=== PATIENT | male | born 1980 | race Caucasian/White ===

== ENCOUNTER 2020-07-14 17:17 | Inpatient (IN) | payer MEDICAID, OTHER ==
[~2020-07-14] VITALS: Ht 175.3 cm; Wt 112.9 kg
[~2020-07-14 17:17] MED LIST: RISP1TAB48 PO; SERT50TA PO
[2020-07-14] MEDS ORDERED: HALOPERIDOL LACTATE 5 MG/ML VIAL IM ONE (18:45)
[2020-07-14] MEDS ORDERED: DiphenhydrAMINE HCL 50 MG/ML VIAL IM ONE (18:45)
[2020-07-14] MEDS ORDERED: LORazepam 2 MG/ML VIAL IM ONE (18:45)
[2020-07-14 19:00] LABS: COVID AG,FIA SOURCE NASAL SWAB
[2020-07-14] MEDS ORDERED: HALOPERIDOL 5 MG TABLET PO PRN (22:45)
[2020-07-15 00:38] LABS: BASOPHILS % (AUTO) 0.2 % (0.0-2.0); EOSINOPHILS % (AUTO) 0.2 % (1.0-6.0); HEMATOCRIT 44.5 % (41-53); HEMOGLOBIN 15.1 g/dL (13.5-17.5); LYMPHOCYTES # (AUTO) 1.8 K/uL (1.0-4.8); LYMPHOCYTES % (AUTO) 11.6 % (22.0-44.0); MEAN CORPUSCULAR HEMOGLOBIN 30.5 pg (26.0-34.0); MEAN CORPUSCULAR VOLUME 90 fL (80-100); MONOCYTES # (AUTO) 1.3 K/uL (0.1-1.0); MONOCYTES % (AUTO) 8.2 % (2.0-9.0); NEUTROPHILS # (AUTO) 12.3 K/uL (1.8-7.7); NEUTROPHILS % (AUTO) 79.8 % (40.0-70.0); PLATELET COUNT (AUTO) 259 K/uL (150-450); RED BLOOD CELL COUNT(AUTO) 4.95 MIL/uL (4.50-5.90); RED CELL DISTRIBUTION WIDTH 13.8 % (11.5-14.5)
[2020-07-15 01:01] LABS: ANION GAP 13 mmol/L (8-16); CALCIUM, TOTAL 8.2 mg/dL (8.8-10.5); CARBON DIOXIDE 22 mmol/L (22-29); CHLORIDE 105 mmol/L (98-107); CREATININE 1.15 mg/dL (0.60-1.30); GLOMERULAR FILTR. RATE CALC > 60 mL/min (>60); GLUCOSE,RANDOM 94 mg/dL (70-110); POTASSIUM 3.7 mmol/L (3.5-5.1); SODIUM SERUM 140 mmol/L (136-145); UREA NITROGEN, BLOOD 19 mg/dL (7-18)
[2020-07-15 01:06] LABS: CHOL/HDL RATIO 2.7 (4.2-7.3)
[2020-07-15 01:07] LABS: ALANINE AMINOTRANSFERASE 65 U/L (12-78); ALBUMIN 3.8 g/dL (3.4-5.0); ALKALINE PHOSPHATASE 47 U/L (46-116); ASPARTATE AMINOTRANSFERASE 102 U/L (15-37); TOTAL PROTEIN, SERUM 7.5 g/dL (6.4-8.2)
[2020-07-15 08:51] LABS: APPEARANCE,URINE CLEAR (CLEAR); GLUCOSE, URINE (UA) NEGATIVE (NEGATIVE); KETONES,URINE >=80 mg/dL (NEGATIVE); LEUKOCYTE ESTERASE ,URINE NEGATIVE (NEGATIVE); NITRATE,URINE NEGATIVE (NEGATIVE); OCCULT BLOOD,URINE SMALL (NEGATIVE); PH,URINE 6.5 (5.0-8.0); PROTEIN,URINE TRACE (NEGATIVE); UROBILINOGEN,URINE 0.2 mg/dL (<=1.0)
[2020-07-15 08:52] LABS: BILIRUBIN,URINE PRELIM. POSITIVE (NEGATIVE)
[2020-07-15 08:56] LABS: AMPHET/METH SCREEN,URINE NEGATIVE (NEGATIVE); BARBITURATE SCREEN, URINE NEGATIVE (NEGATIVE); BENZODIAZEPINES SCREEN,URINE NEGATIVE (NEGATIVE); CANNABINOID SCREEN,URINE POSITIVE (NEGATIVE); COCAINE SCREEN,URINE NEGATIVE (NEGATIVE); METHADONE SCREEN, URINE NEGATIVE (NEGATIVE); OPIATE SCREEN,URINE NEGATIVE (NEGATIVE)
[2020-07-15 08:58] LABS: PHENCYCLIDINE SCREEN,URINE NEGATIVE (NEGATIVE)
[2020-07-15 09:00] LABS: BACTERIA,URINE None Seen /HPF (None Seen); RBC,URINE 0-2 /HPF (0-2); SQUAMOUS EPITHELIAL CELL,UR Few /LPF (None Seen); WBC,URINE None Seen /HPF (0-5)
[2020-07-15 16:53] VITALS: BP 136/70
[2020-07-15] MEDS ORDERED: LOPERAMIDE HCL 2 MG CAPSULE PO PRN (19:45)
[2020-07-15] MEDS ORDERED: CloNIDine HCL 0.1 MG TABLET PO PRN (19:45)
[2020-07-15] MEDS ORDERED: DOCUSATE SODIUM 100 MG CAPSULE PO PRN (19:45)
[2020-07-15] MEDS ORDERED: MAGNESIUM HYDROXIDE SUSPENSION 30 ML UDCUP PO PRN (19:45)
[2020-07-15] MEDS ORDERED: MAG HYDROX/AL HYDROX/SIMETH ES 30 ML SUSPENSION UDCUP PO PRN (19:45)
[2020-07-15] MEDS ORDERED: PETROLATUM,WHITE 28 GM JELLY TP PRN (19:45)
[2020-07-15] MEDS ORDERED: IBUPROFEN 400 MG TABLET PO PRN (19:45)
[2020-07-15] MEDS ORDERED: ONDANSETRON HCL 4 MG TABLET PO PRN (19:45)
[2020-07-15] MEDS ORDERED: ACETAMINOPHEN 325 MG TABLET PO PRN (19:45)
[2020-07-15] MEDS ORDERED: ALBUTEROL SULFATE HFA 90 MCG/PUFF 8 GM INHALER IH PRN (19:45)
[2020-07-15] MEDS ORDERED: NICOTINE 14 MG/24 HOUR PATCH TD PRN (19:45)
[2020-07-15] MEDS ORDERED: GuaiFENesin/D-METHORPHAN [SUGAR-FREE] 200-20MG/10 ML SYRUP UDCUP PO PRN (19:45)
[2020-07-15] MEDS: ZOLPIDEM TARTRATE 10 MG TABLET PO PRN (21:54)
[2020-07-16 04:04] VITALS: BP 143/87
[2020-07-16 08:08] VITALS: BP 147/69
[2020-07-16] MEDS: SERTRALINE HCL 50 MG TABLET PO SCH (13:32)
[2020-07-16] MEDS: LORazepam 2 MG TABLET PO PRN (16:16)
[2020-07-16 16:56] VITALS: BP 150/89
[2020-07-16] MEDS: RisperiDONE 2 MG TABLET PO SCH (20:04)
[2020-07-17 08:20] VITALS: BP 143/89
[2020-07-17] MEDS: SERTRALINE HCL 50 MG TABLET PO SCH (08:23)
[2020-07-17 08:27] VITALS: BP 143/89
[2020-07-17] MEDS: RisperiDONE 2 MG TABLET PO SCH (21:30)
[2020-07-17] MEDS: ZOLPIDEM TARTRATE 10 MG TABLET PO PRN (23:18)
[2020-07-18 03:00] VITALS: BP 137/95
[2020-07-18 08:53] VITALS: BP 143/91
[2020-07-18] MEDS: SERTRALINE HCL 50 MG TABLET PO SCH (09:00)
[2020-07-18] MEDS ORDERED: RISP2TAB76 PO (09:49)
[2020-07-18] MEDS ORDERED: SERT-439 PO (09:49)
[2020-07-18] MEDS: LORazepam 2 MG TABLET PO PRN (11:00)
[2020-07-18 16:15] VITALS: BP 120/69
== END 2020-07-18 16:15 | disposition home or self-care (01) | DRG 750 ==
LOC: EMS 17:19 → UNDOADMIN 22:37 → 3EI 22:37
DX: F25.1 Schizoaffective disorder, depressive type (principal); D72.829 Elevated white blood cell count, unspecified; F12.20 Cannabis dependence, uncomplicated; E66.9 Obesity, unspecified; Z20.822 Contact with and (suspected) exposure to COVID-19; E78.5 Hyperlipidemia, unspecified; Z79.899 Other long term (current) drug therapy; Z68.36 Body mass index [BMI] 36.0-36.9, adult
CPT/HCPCS: 87426; 99291; G0480; J1200; J1630; J2060

== ENCOUNTER 2020-07-26 20:28 | Inpatient (IN) | payer MEDICAID, OTHER ==
[~2020-07-26] VITALS: Ht 170.2 cm; Wt 114.8 kg
[~2020-07-26 20:28] MED LIST changes: -RISP1TAB48 PO; +RISP2TAB76 PO; +SERT-439 PO; -SERT50TA PO
[2020-07-26 21:15] LABS: BASOPHILS % (AUTO) 0.4 % (0.0-2.0); EOSINOPHILS % (AUTO) 0.7 % (1.0-6.0); HEMOGLOBIN 13.8 g/dL (13.5-17.5); LYMPHOCYTES # (AUTO) 1.1 K/uL (1.0-4.8); LYMPHOCYTES % (AUTO) 8.8 % (22.0-44.0); MEAN CORPUSCULAR HGB CONC 34.6 G/dL (31.0-37.0); MEAN CORPUSCULAR VOLUME 90 fL (80-100); MONOCYTES # (AUTO) 0.9 K/uL (0.1-1.0); MONOCYTES % (AUTO) 6.8 % (2.0-9.0); NEUTROPHILS # (AUTO) 10.4 K/uL (1.8-7.7); NEUTROPHILS % (AUTO) 83.3 % (40.0-70.0); PLATELET COUNT (AUTO) 236 K/uL (150-450); RED BLOOD CELL COUNT(AUTO) 4.46 MIL/uL (4.50-5.90); RED CELL DISTRIBUTION WIDTH 13.6 % (11.5-14.5)
[2020-07-26 21:25] LABS: ANION GAP 8 mmol/L (8-16); CARBON DIOXIDE 29 mmol/L (22-29); CHLORIDE 100 mmol/L (98-107); CREATININE 0.98 mg/dL (0.60-1.30); GLOMERULAR FILTR. RATE CALC > 60 mL/min (>60); GLUCOSE,RANDOM 96 mg/dL (70-110); POTASSIUM 3.3 mmol/L (3.5-5.1); SODIUM SERUM 137 mmol/L (136-145); UREA NITROGEN, BLOOD 13 mg/dL (7-18)
[2020-07-26 21:31] LABS: ALANINE AMINOTRANSFERASE 131 U/L (12-78); ALBUMIN 3.5 g/dL (3.4-5.0); ALKALINE PHOSPHATASE 61 U/L (46-116); ASPARTATE AMINOTRANSFERASE 191 U/L (15-37); BILIRUBIN,TOTAL 0.8 mg/dL (0.1-1.0); TOTAL PROTEIN, SERUM 6.9 g/dL (6.4-8.2)
[2020-07-26] MEDS ORDERED: POTASSIUM CHLORIDE 20 MEQ ER TABLET PO ONE (22:15)
[2020-07-26] MEDS ORDERED: ALLO100T2 PO (22:27)
[2020-07-26] MEDS ORDERED: COLC0.6T73 PO (22:27)
[2020-07-26 22:38] LABS: AMPHET/METH SCREEN,URINE NEGATIVE (NEGATIVE); BARBITURATE SCREEN, URINE NEGATIVE (NEGATIVE); BENZODIAZEPINES SCREEN,URINE NEGATIVE (NEGATIVE); CANNABINOID SCREEN,URINE POSITIVE (NEGATIVE); COCAINE SCREEN,URINE NEGATIVE (NEGATIVE); METHADONE SCREEN, URINE NEGATIVE (NEGATIVE); OPIATE SCREEN,URINE NEGATIVE (NEGATIVE)
[2020-07-26 22:40] LABS: PHENCYCLIDINE SCREEN,URINE NEGATIVE (NEGATIVE)
[2020-07-26] MEDS ORDERED: BACITRACIN 0.9 GM PACKET OINTMENT TP ONE (22:45)
[2020-07-26] MEDS ORDERED: IBUPROFEN 600 MG TABLET PO ONE (22:45)
[2020-07-26] MEDS ORDERED: ACETAMINOPHEN 500 MG TABLET PO ONE (22:45)
[2020-07-27 00:47] LABS: COVID AG,FIA SOURCE NASOPHARYNGEAL
[2020-07-27 03:48] VITALS: BP 153/84
[2020-07-27] MEDS: LORazepam 2 MG TABLET PO PRN ×2 (03:55→21:56)
[2020-07-27] MEDS ORDERED: ACETAMINOPHEN 325 MG TABLET PO PRN ×2 (06:30→08:15)
[2020-07-27] MEDS: COLCHICINE 0.6 MG TABLET PO SCH (08:09)
[2020-07-27] MEDS: ALLOPURINOL 300 MG TABLET PO SCH (08:09)
[2020-07-27] MEDS ORDERED: IBUPROFEN 400 MG TABLET PO PRN (08:15)
[2020-07-27] MEDS ORDERED: MAG HYDROX/AL HYDROX/SIMETH ES 30 ML SUSPENSION UDCUP PO PRN (08:15)
[2020-07-27] MEDS ORDERED: GuaiFENesin/D-METHORPHAN [SUGAR-FREE] 200-20MG/10 ML SYRUP UDCUP PO PRN (08:15)
[2020-07-27] MEDS ORDERED: ONDANSETRON HCL 4 MG TABLET PO PRN (08:15)
[2020-07-27] MEDS ORDERED: MAGNESIUM HYDROXIDE SUSPENSION 30 ML UDCUP PO PRN (08:15)
[2020-07-27] MEDS ORDERED: LOPERAMIDE HCL 2 MG CAPSULE PO PRN (08:15)
[2020-07-27] MEDS ORDERED: ALBUTEROL SULFATE HFA 90 MCG/PUFF 8 GM INHALER IH PRN (08:15)
[2020-07-27] MEDS ORDERED: DOCUSATE SODIUM 100 MG CAPSULE PO PRN (08:15)
[2020-07-27] MEDS ORDERED: CloNIDine HCL 0.1 MG TABLET PO PRN (08:15)
[2020-07-27] MEDS ORDERED: PETROLATUM,WHITE 28 GM JELLY TP PRN (08:15)
[2020-07-27] MEDS ORDERED: COLCHICINE 0.6 MG TABLET PO SCH (09:00)
[2020-07-27] MEDS ORDERED: ALLOPURINOL 100 MG TABLET PO SCH (09:00)
[2020-07-27 09:52] VITALS: BP 136/86
[2020-07-27 10:08] LABS: APPEARANCE,URINE CLEAR (CLEAR); BILIRUBIN,URINE NEGATIVE (NEGATIVE); GLUCOSE, URINE (UA) NEGATIVE (NEGATIVE); KETONES,URINE NEGATIVE (NEGATIVE); LEUKOCYTE ESTERASE ,URINE NEGATIVE (NEGATIVE); NITRATE,URINE NEGATIVE (NEGATIVE); OCCULT BLOOD,URINE NEGATIVE (NEGATIVE); PH,URINE 6.5 (5.0-8.0); PROTEIN,URINE NEGATIVE (NEGATIVE); UROBILINOGEN,URINE 0.2 mg/dL (<=1.0)
[2020-07-27 10:17] LABS: AMPHET/METH SCREEN,URINE NEGATIVE (NEGATIVE); BARBITURATE SCREEN, URINE NEGATIVE (NEGATIVE); BENZODIAZEPINES SCREEN,URINE NEGATIVE (NEGATIVE); CANNABINOID SCREEN,URINE POSITIVE (NEGATIVE); COCAINE SCREEN,URINE NEGATIVE (NEGATIVE); METHADONE SCREEN, URINE NEGATIVE (NEGATIVE); OPIATE SCREEN,URINE NEGATIVE (NEGATIVE)
[2020-07-27 10:18] LABS: PHENCYCLIDINE SCREEN,URINE NEGATIVE (NEGATIVE)
[2020-07-27] MEDS: SERTRALINE HCL 50 MG TABLET PO SCH (13:17)
[2020-07-27 16:00] VITALS: BP 144/86
[2020-07-27] MEDS: INDOMETHACIN 50 MG CAPSULE PO SCH (16:00)
[2020-07-27] MEDS: RisperiDONE 2 MG TABLET PO SCH ×2 (21:00→21:56)
[2020-07-28] MEDS: INDOMETHACIN 50 MG CAPSULE PO SCH ×3 (00:43→16:00)
[2020-07-28] MEDS: ZOLPIDEM TARTRATE 10 MG TABLET PO PRN (02:07)
[2020-07-28 02:12] VITALS: BP 144/82
[2020-07-28] MEDS: ALLOPURINOL 300 MG TABLET PO SCH (08:05)
[2020-07-28] MEDS: SERTRALINE HCL 50 MG TABLET PO SCH (08:05)
[2020-07-28] MEDS: LEVOFLOXACIN 500 MG TABLET PO SCH (08:06)
[2020-07-28] MEDS: COLCHICINE 0.6 MG TABLET PO SCH (08:06)
[2020-07-28 09:52] VITALS: BP 144/82
[2020-07-28] MEDS: NICOTINE 14 MG/24 HOUR PATCH TD PRN (10:04)
[2020-07-28 16:08] VITALS: BP 155/74
[2020-07-28] MEDS: BACITRACIN 28 GM OINTMENT TP SCH (17:03)
[2020-07-28 23:42] VITALS: BP 155/89
[2020-07-28] MEDS: LORazepam 2 MG TABLET PO PRN (23:44)
[2020-07-29] MEDS: INDOMETHACIN 50 MG CAPSULE PO SCH ×4 (00:10→23:36)
[2020-07-29] MEDS: ZOLPIDEM TARTRATE 10 MG TABLET PO PRN (02:50)
[2020-07-29 08:00] VITALS: BP 145/91
[2020-07-29] MEDS: BACITRACIN 28 GM OINTMENT TP SCH ×2 (08:35→16:11)
[2020-07-29] MEDS: LEVOFLOXACIN 500 MG TABLET PO SCH (08:35)
[2020-07-29] MEDS: ALLOPURINOL 300 MG TABLET PO SCH (08:36)
[2020-07-29] MEDS: LORazepam 2 MG TABLET PO PRN ×2 (08:36→14:50)
[2020-07-29] MEDS: SERTRALINE HCL 50 MG TABLET PO SCH (08:36)
[2020-07-29] MEDS: COLCHICINE 0.6 MG TABLET PO SCH (08:36)
[2020-07-29] MEDS: QUEtiapine FUMARATE 100 MG TABLET PO PRN (08:36)
[2020-07-29 16:00] VITALS: BP 137/71
[2020-07-29] MEDS: RisperiDONE 2 MG TABLET PO SCH (20:47)
[2020-07-30 06:45] LABS: CHOL/HDL RATIO 3.6 (4.2-7.3); CHOLESTEROL 152 mg/dL (131-200); HDL CHOLESTEROL 42 mg/dL (40-60); TRIGLYCERIDES 452 mg/dL (15-150)
[2020-07-30] MEDS: COLCHICINE 0.6 MG TABLET PO SCH (08:17)
[2020-07-30] MEDS: INDOMETHACIN 50 MG CAPSULE PO SCH ×3 (08:17→23:58)
[2020-07-30] MEDS: BACITRACIN 28 GM OINTMENT TP SCH ×2 (08:17→16:14)
[2020-07-30] MEDS: LEVOFLOXACIN 500 MG TABLET PO SCH (08:17)
[2020-07-30] MEDS: SERTRALINE HCL 50 MG TABLET PO SCH (08:17)
[2020-07-30] MEDS: ALLOPURINOL 300 MG TABLET PO SCH (08:17)
[2020-07-30 10:49] VITALS: BP 144/89
[2020-07-30] MEDS: NICOTINE 14 MG/24 HOUR PATCH TD PRN (13:46)
[2020-07-30] MEDS: LORazepam 2 MG TABLET PO PRN (17:22)
[2020-07-30] MEDS: RisperiDONE 2 MG TABLET PO SCH (20:36)
[2020-07-31 03:50] VITALS: BP 150/98
[2020-07-31] MEDS: LORazepam 2 MG TABLET PO PRN ×2 (04:30→08:52)
[2020-07-31] MEDS: INDOMETHACIN 50 MG CAPSULE PO SCH ×3 (07:48→23:50)
[2020-07-31] MEDS: SERTRALINE HCL 50 MG TABLET PO SCH (07:48)
[2020-07-31] MEDS: ALLOPURINOL 300 MG TABLET PO SCH (07:49)
[2020-07-31] MEDS: QUEtiapine FUMARATE 100 MG TABLET PO PRN (07:49)
[2020-07-31] MEDS: COLCHICINE 0.6 MG TABLET PO SCH (07:49)
[2020-07-31] MEDS: LEVOFLOXACIN 500 MG TABLET PO SCH (07:49)
[2020-07-31] MEDS: BACITRACIN 28 GM OINTMENT TP SCH ×2 (07:51→16:45)
[2020-07-31 08:00] VITALS: BP 153/99
[2020-07-31 16:14] VITALS: BP 133/81
[2020-07-31] MEDS: RisperiDONE 2 MG TABLET PO SCH (19:55)
[2020-07-31] MEDS: ZOLPIDEM TARTRATE 10 MG TABLET PO PRN (23:50)
[2020-08-01 06:27] LABS: BASOPHILS % (AUTO) 0.5 % (0.0-2.0); EOSINOPHILS % (AUTO) 4.6 % (1.0-6.0); HEMATOCRIT 45.6 % (41-53); HEMOGLOBIN 15.5 g/dL (13.5-17.5); LYMPHOCYTES # (AUTO) 2.7 K/uL (1.0-4.8); LYMPHOCYTES % (AUTO) 25.1 % (22.0-44.0); MEAN CORPUSCULAR HGB CONC 33.9 G/dL (31.0-37.0); MEAN CORPUSCULAR VOLUME 91 fL (80-100); MONOCYTES # (AUTO) 0.8 K/uL (0.1-1.0); MONOCYTES % (AUTO) 7.7 % (2.0-9.0); NEUTROPHILS # (AUTO) 6.6 K/uL (1.8-7.7); NEUTROPHILS % (AUTO) 62.1 % (40.0-70.0); PLATELET COUNT (AUTO) 328 K/uL (150-450); RED BLOOD CELL COUNT(AUTO) 4.99 MIL/uL (4.50-5.90); RED CELL DISTRIBUTION WIDTH 14.1 % (11.5-14.5)
[2020-08-01] MEDS: BACITRACIN 28 GM OINTMENT TP SCH ×2 (07:45→16:27)
[2020-08-01] MEDS: ALLOPURINOL 300 MG TABLET PO SCH (07:45)
[2020-08-01] MEDS: LORazepam 2 MG TABLET PO PRN (07:45)
[2020-08-01] MEDS: INDOMETHACIN 50 MG CAPSULE PO SCH ×2 (07:46→16:28)
[2020-08-01] MEDS: SERTRALINE HCL 50 MG TABLET PO SCH (07:46)
[2020-08-01] MEDS: COLCHICINE 0.6 MG TABLET PO SCH (07:46)
[2020-08-01] MEDS: LEVOFLOXACIN 500 MG TABLET PO SCH (07:46)
[2020-08-01 08:00] VITALS: BP 164/92
[2020-08-01 16:00] VITALS: BP 123/81
[2020-08-01] MEDS: RisperiDONE 2 MG TABLET PO SCH (20:25)
[2020-08-02] MEDS: INDOMETHACIN 50 MG CAPSULE PO SCH ×2 (00:03→08:14)
[2020-08-02] MEDS: LORazepam 2 MG TABLET PO PRN (02:09)
[2020-08-02] MEDS: ZOLPIDEM TARTRATE 10 MG TABLET PO PRN (02:09)
[2020-08-02 02:14] VITALS: BP 145/90
[2020-08-02] MEDS: SERTRALINE HCL 50 MG TABLET PO SCH (08:12)
[2020-08-02] MEDS: ALLOPURINOL 300 MG TABLET PO SCH (08:13)
[2020-08-02] MEDS: BACITRACIN 28 GM OINTMENT TP SCH (08:13)
[2020-08-02] MEDS: COLCHICINE 0.6 MG TABLET PO SCH (08:14)
[2020-08-02] MEDS: LEVOFLOXACIN 500 MG TABLET PO SCH (08:14)
[2020-08-02 08:49] VITALS: BP 129/84
[2020-08-02 09:13] LABS: COVID AG,FIA SOURCE NASOPHARYNGEAL
[2020-08-02] MEDS ORDERED: RISP2TAB76 PO (09:48)
[2020-08-02] MEDS ORDERED: SERT-439 PO (09:48)
[2020-08-02] MEDS ORDERED: INDO50CA97 PO (10:23)
[2020-08-02] MEDS ORDERED: LEVO-72 PO (10:24)
== END 2020-08-02 13:30 | disposition home or self-care (01) | DRG 750 ==
LOC: EMS 20:28 → 3EI 07-27 00:15 → 3EC 07-27 21:45
DX: F25.1 Schizoaffective disorder, depressive type (principal); L03.115 Cellulitis of right lower limb; R45.851 Suicidal ideations; Z59.0 Homelessness; F12.20 Cannabis dependence, uncomplicated; M10.9 Gout, unspecified; F41.9 Anxiety disorder, unspecified; E66.9 Obesity, unspecified; L03.116 Cellulitis of left lower limb; E87.6 Hypokalemia; Z68.39 Body mass index [BMI] 39.0-39.9, adult; F31.9 Bipolar disorder, unspecified; Z79.899 Other long term (current) drug therapy; F17.200 Nicotine dependence, unspecified, uncomplicated; Z20.822 Contact with and (suspected) exposure to COVID-19
CPT/HCPCS: 70450; 72125; 80053; 80061; 80307; 81003; 84132; 85025; 87081; 87426; 99285; G0480